=== PATIENT | female | born 1970 | race African-American/Black ===

== ENCOUNTER 2016-09-19 15:49 | Emergency (ER) | payer SELFPAY ==
[~2016-09-19] VITALS: Ht 162.6 cm; Wt 68.0 kg
--- NOTE | ~2016-09-19 | US140 ---
[facility] A Service of [facility] [place] RADIOLOGY TEXT RESULTS PATIENT: NU AYERS LOCATION: ANANTH : 70 UNIT #: [id number] AGE: [address]: Peggy Carolina MD SEX: F ORDER DR: [id number] [facility] [address] [place], [place] [address] [id number] MR#: [id number] Acc #: [id number] NAME: NU AYERS : 1970 SEX: F STUDY DATE/TIME: 09/19/2016 20:23 UNIT: ANAN[facility] ROOM: STUDY DESCRIPTION: [facility] Attending Physician: Peggy Carolina M.D. Ordering Physician: Peggy Carolina M.D. Primary Care Physician: Primary Care Physician No MEDICAL IMAGING REPORT This report is preliminary unless electronic signature is present EXAM Left upper extremity venous ultrasound HISTORY Left upper extremity pain for one month. Increased pain for one week. No prior history of DVT. FINDINGS Real-time ultrasonography of the left upper extremity venous structures performed. England-scale, color Doppler, Doppler pulse wave interrogation utilized. Left internal jugular vein, subclavian, axillary, brachial veins are patent with normal compressibility where anatomically possible and normal gwkw-vw-[id number] flow on color Doppler interrogation. The left cephalic and basilic veins are patent with normal compressibility and color Doppler interrogation. IMPRESSION Left upper extremity venous ultrasound shows no evidence of deep or superficial venous thrombosis at time of this examination. Dictated by... Sabas Ramirez M.D. THIS IS AN ELECTRONICALLY VERIFIED REPORT Sabas Ramirez M.D. at 09/20/2016 1:21 PM MARYK/florina TD: 09/19/2016 21:21 JOB #: [id number] [facility] A Service of [facility] [place] RADIOLOGY TEXT RESULTS PATIENT: NU AYERS LOCATION: ANANTH : 70 UNIT #: [id number] AGE: [address]: Peggy Carolina MD SEX: F ORDER DR: MEDICAL IMAGING REPORT Page 1 of 1 COPY
== END 2016-09-19 22:20 | disposition home or self-care (01) ==
LOC: CED 15:49
DX: M79.622 Pain in left upper arm (principal)
CPT/HCPCS: 93971; 96372; 99283; J1885